=== PATIENT | female | born 1950 | race Caucasian/White ===

== ENCOUNTER 2020-12-21 15:51 | Inpatient (IN) | payer OTHER ==
[~2020-12-21] VITALS: Ht 154.9 cm; Wt 60.2 kg
[~2020-12-21 15:51] MED LIST: ARICEPT10 M1 PO; COREG3.125 MG PO; FUROSEMIDE 20 M20 MG PO; GEODON20 MG PO; IRBESARTAN150 MG PO; LEXAPRO20 MG PO; LIPITOR40 MG PO; MELATONIN3 M1 PO; NUEDEXTA 20-101 EACH PO; PEPCID20 MG PO; SINEMET 25-1001 EAC1 PO; SPIRONOLACTONE25 M1 PO
[2020-12-21 17:10] VITALS: BP 184/67
--- NOTE | 2020-12-21 18:46 | NUR ---
PATIENT 70 YEAR OLD FEMALE LIVING WITH HER DAUGHTER AT HOME. BROUGHT INTO EMERGENCY DEPT DUE TO INCREASED COMBATIVENESS AND AGGRESSION AT HOME - PATIENT HAS HISTORY OF TBI DUE TO FALL SEVERAL YEARS AGO - WHERE THIS BEHAVIOR STARTED. PATIENT NON AMBULATORY AND MANUVERS AROUND IN WHEELCHAIR AND VERY HIGH FALL RISK. DAUGHTER BUCKY WALTERS IS DPOA - PATIENT ASSESSED AND FOUND TO BE HIGHLY CONFUSED STATING WAS HERE DUE TO GRANDAUGHTER HAVING BABY IN HOSPITAL. PATIENT COMPLIANT WITH MEDICATIONS. CALLED DR. STEWARD AND ORDERS PLACED PER REVIEW WITH . PATIENT ESCORTED TO ROOM - CALM AND AGREEABLE.
[2020-12-21 20:55] VITALS: BP 164/75
[2020-12-22 06:09] LABS: CHOLESTEROL 135 mg/dL (<200); HDL CHOLESTEROL 40 mg/dL (>40); LDL CHOLESTEROL 73 mg/dL (<100); TC:HDL 3.4 Ratio (Not establshd); TRIGLYCERIDE 114 mg/dL (<150); VLDL 23 mg/dL (<40)
[2020-12-22 06:11] LABS: SERUM ASSESSMENT Clear
--- NOTE | 2020-12-22 07:10 | NUR ---
12/21/20 - Pt is Alert/[place] x 3, pleasant, denies SI/HI/AH/VH. Took meds whole without difficultly. utilizes w/c, assist x 1 with transfers.
[2020-12-22 09:23] VITALS: BP 187/71
[2020-12-22 11:32] LABS: HEMATOCRIT 39.5 % (37.0-47.0); HEMOGLOBIN 13.4 gm/dL (12.0-15.0); MCH 33.5 pg (26.0-34.0); MCHC 34.1 g/dL (28.0-37.0); MCV 98.4 fL (80.0-100.0); RBC 4.01 mil/uL (4.20-5.00); RDW 13.4 % (10.5-14.5); WBC 6.6 thou/uL (4.0-11.0)
[2020-12-22 12:37] VITALS: BP 155/68
--- NOTE | 2020-12-22 15:33 | NUR ---
Assumed pt care at 0700. pt was in her room sleeping. Pt was alert and oriented to person. Assessments completed, vss. pt denies si/hi denies pain. took meds whole, no difficulty noted. Ambulates with a w/c. pt is 1x assist. No sign of acute distress noted upon assessments. Pt was incontinent of bowel x2. pt had a watery stool. Dr Delgadillo notified. stool sample collected and sent to lab. Pt was given a shower. At this time pt is in the day room watching TV. Will continue to Monitor pt.
[2020-12-22 20:27] VITALS: BP 169/53
[2020-12-22 20:30] VITALS: BP 156/60
[2020-12-23 05:36] LABS: GLYCOHEMOGLOBIN (HGB A1C) 5.5 % (4.8-5.6)
--- NOTE | 2020-12-23 05:57 | NUR ---
12-22-20 CARE TRANSFERRED 1899. LATER PT AAOX1, VSS, RR EVEN AND NONLABORED ON RA. PT PRESENTS CONFUSED, REPORTS SHE IS ON A FREIGHTER HEADING SOUTH, SHE HAS NEVER LIVIED BELOW, PT HAS REMAINED CALM AND EXCEPTING WHEN RERIENTED TO HOSPITAL. PT DENIES SI/HI AND OBSERVED NO BEHAVIORS. PT DENIES PAIN AND NO S/S NOTED. PT WILL CONTINUE TO BE MONITOR PER [facility] PROTOCOL.
[2020-12-23 08:00] VITALS: BP 153/63
--- NOTE | 2020-12-23 15:34 | NUR ---
IRRITABLE AND RESTLESS THIS AM-ATTEMPTING TO GET UP OUT OF CHAIR MULTIPLE TIMES TRIGGERING CHAIR ALARM-STATES SHE IS NOT SUPPOSED TO BE HERE "I NEED TO GO I THINK SOMEONE IS WAITING FOR ME THEY DON'T KNOW WHERE I AM" COMPLIENT WITH TAKING AM MEDICATIONS AND ALLOWING PHYSICAL ASSESSMENT-DENIES C/O PAIN. BS HYPERACTIVE AND PT REPORTED TO HAVE LARGE LOOSE BM 12/22-AFTER EATING LUNCH AT APPROX 1400 SITTING IN WC IN DAYROOM AND VOMITED LARGE AMOUNT UNDIGESTED FOOD-ALSO INCONTINENT OF LARGE-LOOSE STOOL- SHOWER GIVEN,CLOTHING CHANGED-IMMODIUM 2MG GIVEN PO PRN, DR LOMELI CALLED AND INFORMED OF ABOVE-ZOFRAN 4MG PO PRN AT APPROX 1534-ASSISTED TO BED AND APPEARS TO BE RESTING QUIETLY AT THIS TIME.
--- NOTE | 2020-12-23 17:57 | NUR ---
SW completed psychosocial assessment and tx plan. SW team will remain available while on this unit.
[2020-12-23 20:13] VITALS: BP 151/66
[2020-12-23 20:20] VITALS: BP 151/66
--- NOTE | 2020-12-24 01:19 | NUR ---
PATIENT HAS BEEN IN ROOM ALL EVENING. SHE HAS EATEN SOFT FOODS SINCE SHE HAD DIARHEA AND EMESIS EARLIER IN THE DAY. SHE WAS ABLE TO KEEP DOWN YOGURT AND A FEW CRACKERS. PT ALSO HAD SOME [place] SODA SHE SIPPED ON. DENIES PAIN. ASSISTED PATIENT TO THE RESTROOM. SHE WAS INCONTINENT OF URINE AND WAS CLEANED AND CHANGED BRIEF. PATIENT HELPED BACK TO BED. DENIES PAIN, AND N/V. PATIENT IS A/0X1. WALKS WITH ASSIST X 1. NO SIGNS OF SI/HI/AVH. ROUTINE ROUNDS TO ASSESS SAFETY AND STATUS OF PATIENT. BED IN LOW POSITION AND BED ALARM IS ON.
[2020-12-24 08:39] VITALS: BP 155/66
--- NOTE | 2020-12-24 11:26 | NUR ---
Nutrition: Pt admitted to [facility] dx dementia with behavioral disorder. PMH: cardiac stent, TBI, HTN. Visit with pt in dayroom. No weight hx available however pt reports stable. Average intake of meals 53% past 6 meals. Pt voices no appetite changes. Recent diarrhea noted, immodium added. RD suggested daily banana also. Pt voiced no nutrition related to concerns to RD. Low risk.
--- NOTE | 2020-12-24 13:47 | NUR ---
KASIE contacted pt's dpoa Marsha. No answer. KASIE left a msg. SW team will continue to follow pt during her stay on this unit.
[2020-12-24 19:47] VITALS: BP 176/68
[2020-12-24 20:00] VITALS: BP 176/68
--- NOTE | 2020-12-24 20:35 | NUR ---
LABILE MOOD THIS SHIFT. PLEASANT AND COOPERATIVE UPON INITIAL APPROACH AT 0730 WHEN HELPED TO DRESS,AND BRIEF CHANGED-BROUGHT TO DR AND GIVEN BREAKFAST-WAS PLEASANT AND APPRECIATIVE OF ASSISTANCE-APPROX 30 MINUTES LATER WHEN THIS RN APPROACHED KISHAN IN DAYROOM WITH 0900 MEDS WAS NOTED TO HAVE ANGRY FACIAL EXPRESSION,INSISTING SHE NEEDED TO LEAVE HERE AND FELT LIKE A PRISONER,"THEY HAVE TAKEN EVERYTHING-ESPECIALLY MY FREEDOM" DID RESPOND TO SUPPORT AND REASSURANCE FROM STAFF AND TOOK AM MEDS. REPORTED BY FAUSTINA RN THAT PT BECAME AGGRESSIVE-STRUCK AT STAFF AND WAS GIVEN ATIVAN O.5MG IM DURING TIME THIS RN WAS IN TREATMENT TEAM MEETING. SINCE ADMINISTRATION OF IM HAS BEEN SOMULENT-ROUSABLE TO VERBAL STIMULI BUT QUICKLY FALLS BACK TO SLEEP. 1700 MEDS HELD D/T SEDATION-REMAINS ON HIGH FALLS RISK AND WILL CONTINUE TO MONITOR.
--- NOTE | 2020-12-25 02:56 | NUR ---
PATIENT HAS BEEN IN ROOM AND IN BED SINCE BEGINNING OF THE SHIFT. SHE WAS ASKING QUESTIONS REGARDING HOW LONG SHE BEEN HERE AND WHEN WILL SHE GET TO GO HOME. I ANSWERED HER QUESTIONS WITH WHAT INFORMATION I HAD AND LET HER KNOW THE DR WOULD BE IN TO SEE HER IN THE MORNING. SHE WAS CONTENT WITH THIS INFORMATION. SHE STATES SHE IS NOT SI/HI/AVH. DENIES PAIN. SHE SAT UP TO TAKE HER HS MEDS WHOLE WITH WATER. SHE IS IMPULSIVE AND GETS UP OUT OF BED TO WALK TO THE BATHROOM WITHOUT HER WALKER AT TIMES. THE BED ALARM IS ON AND BED IS IN LOW POSITION. SHE IS A/0X1-2. SHE HAS BEEN CALM AND COOPERATIVE TONIGHT. CONTINUING ROUTINE ROUNDS TO ASSESS SAFETY AND STATUS OF PATIENT.
[2020-12-25 09:20] VITALS: BP 184/70
--- NOTE | 2020-12-25 17:34 | NUR ---
VM received from [facility], Farhan Ortiz ([phone]). Phone communication with Ms. Ortiz who provided her email address - [email or web address] Email sent to Ms. Ortiz - welcome email and attachments.
--- NOTE | 2020-12-25 18:24 | NUR ---
Assumed patient care at 0700, sleeping in bed, vss, clear lungs, bs active, took medication whole, amb with walker, paticipated in groups, eat good, patient is incont, denies si/hi and pain, will continue to monitor patient
[2020-12-25 19:50] VITALS: BP 150/58
--- NOTE | 2020-12-26 05:12 | NUR ---
12-25-20 CARE TRANSFERRED 1899. LATER PT AAOX1, VSS, RR EVEN AND NONLABORED ON RA. PT DENIES SI/HI AND PAIN. PT PRESENTS PLEASANTLY CONFUSED, REPORTS SHE WILL BE GETTING OFF THIS BOAT TODAY. PT REORIENTED TO PLACE AND EASILY ACCEPTS. PT ATE 100% OF HS SNACK AND TOOK MEDICATION WHOLE WITH THING LIQUIDS, ZERO DIFFICULTIES. PT HAS REMAINED CALM AND COOPERATIVE, PT WILL CONTINUE TO BE MONITOR PER [facility] PROTOCOL.
[2020-12-26 08:28] VITALS: BP 168/78
--- NOTE | 2020-12-26 17:51 | NUR ---
Phone call to Farhan Yomicarlie ([phone]) regarding possible discharge and confirmation of living arrangements. Farhan stated her mother does reside with her in the home same home. The pt gets confused as she did live alone approximately 2 years ago, prior to Farhan moving in. Farhan expressed concern with discharge being that she had spoken to a nurse who stated the pt. had an incident of aggression towards staff. The informed Farhan that this will be discussed with the doctor. Farhan is looking into alternative living arrangements for the pt. but states that probably will not be feasible for about 2 months. A return phone call to Farhan was made after discussing with the doctor. Farhan was informed that due to the aggression, the doctor will hold off on discharging the pt.
--- NOTE | 2020-12-26 18:26 | NUR ---
0700 ASSUMED CARE OF PATIENT, PATIENT IN BED AT THAT TIME. PATIENT TO DAYROOM IN [facility]. MED COMPLIANT. NO C/O PAIN, LS CLEAR, BS ACTIVE. DENIES SI/HI. DENIES ANXIETY/DEPRESSION. VS 168/78, 60,18,98.4,98%
[2020-12-26 19:54] VITALS: BP 146/49
--- NOTE | 2020-12-27 05:02 | NUR ---
12-26-20 CARE TRANSFERRED 1900 OBSERVED PT SITTING IN DAY ROOM. LATER PT AAOX2, VSS, RR EVEN AND NONLABORED ON RA. PT PLEASANT, CALM AND COOPERATIVE, PT DENIES SI/HI AND PAIN. DURING MEDICATION ADMIN PT HAD NO DIFFICULTIES TAKING MEDICATION WHOLE WITH WATER. PT BED WAS ADJUSTED FOR COMFORT, LOWEST POSITION, LOCKED AND ALARM ON. PT WILL CONTINUE TO BE MONITOR PER [facility] PROTOCOL.
[2020-12-27 09:58] VITALS: BP 163/68
--- NOTE | 2020-12-27 11:56 | NUR ---
RT Progress Note- Dioredna Donovan" has been present in the milieu each day as well as each recreation therapy group. She remains irritable and upset at hospitilization which hinders her active participation at times. It is noted that giving her reorientation and speaking in a calm, soft voice helps her to calm when becoming agitated. Socorro tends to only observe group when asked to participate, however she will jump in on her own accord later in each group. QUANTITATIVE RESEARCHER will continue to encourage participation.
--- NOTE | 2020-12-27 13:33 | NUR ---
Assumed pt care 0700. pt was in her room resting. Alert and oriented to person and place. Assessments completed, vss. Pt took meds whole, no difficulty noted. Ambulates with a w/c. No sign of acute distress noted upon assessments. No c/o of pain at this time. Denies si/hi. Meds administered as ordered. Calm and cooperative with care . PT Had a bowel movement this shift. MAKES NEED KNOWN TO STAFF. At this time pt is in the day room. Will continue to monitor.
[2020-12-27 19:00] VITALS: BP 140/48
[2020-12-27 19:32] VITALS: BP 140/48
--- NOTE | 2020-12-28 00:04 | NUR ---
Assumed care on 12/27/20 @ 1930, A&Ox 1 to person. Pleasant affct noted, HRRR, Lungs CTA, ABD n x4q, Reports bm today. Reports Milton is the president, and the year is 2015, the month is February.
[2020-12-28 10:18] VITALS: BP 153/72
[2020-12-28 10:20] VITALS: BP 153/72
--- NOTE | 2020-12-28 11:02 | NUR ---
0700 ASSUMED CARE OF PATIENT, PATIENT IN BED AT THAT TIME. PATIENT CALM AND COOPERATIVE. TO DAYROOM FOR BREAKFAST. MED COMPLIANT WITH NO BEHAVIORS NOTED. PATIENT PRESENT IN GROUP THIS AM. COMMUNICATES WITH OTHER PEERS WELL. VS 153/72, 60, 18, 97.9, 96%. LS CLEAR, BS ACTIVE DENIES NEEDS AT THAT TIME.
[2020-12-28] MEDS ORDERED: COREG6.25 MG PO (14:59)
[2020-12-28 15:17] VITALS: BP 153/72
--- NOTE | 2020-12-28 16:27 | NUR ---
Phone call to DPABDIRAHMAN, Marsha Ortiz. The SW informed Ms. Ortiz that the pt. will be discharged today. Ms. Ortiz is concerned about the pt. being discharged due to no medication changes occurring and the pt. having had an aggressive incident towards a nurse. The SW explained to Ms. Ortiz that the pt. has not had any additional incidents. Ms. Ortiz scheduled to chicken picker the pt. at 1600 hours. The pt. will return home. Ms. Ortiz stated the pt. receives psychiatric services from Dr. Sánchez of [facility]. Ms. Ortiz has looked into a different placement for the pt. She requested a referral be sent to [facility]. Phone call to pt's PCP, Dr. Coelho. Appointment scheduled for Thursday. January 25 at 10:45a.m. Phone call to Dr. Sánchez ([phone]) for psychiatric appointment. Office is closed on Fridays. Fax sent to [facility] (fax: [phone]). New referral including FACE sheet, 's progress notes, nursing notes and medication. Phone message from [facility] regarding referral. A return phone call and voice message was left.
--- NOTE | 2020-12-28 17:57 | NUR ---
PATIENT AMB TO ROOM WITH WALKER WITH SLOW AND STEADY GAIT X 1 ASSIST. PATIENT CHANGED INTO PERSONAL CLOTHES AND READY FOR DISCHARGE. TRANSFERED TO PERSONAL WHEEL CHAIR AND OUT TO DAYROOM. 1700 DAUGHTER HERE TO HUMAN RESOURCES EXECUTIVE PATIENT RN AND PATIENT OUT TO OUTSIDE RANKIN, INSTRUCTIONS GIVEN TO DAUGHTER (DPOA). BELONGINGS IN HAND. PATIENT ACCOMPANIED TO VEHICLE IN WC BY STAFF.
== END 2020-12-28 16:45 | disposition home or self-care (01) | DRG 884 ==
LOC: SBH 15:51
PROVIDERS: Hospitalist; ADMIT Psychiatry & Neurology Psychiatry; ATTEND Psychiatry & Neurology Psychiatry
DX: F03.91 Unspecified dementia, unspecified severity, with behavioral disturbance (principal); N18.9 Chronic kidney disease, unspecified; F23 Brief psychotic disorder; N39.0 Urinary tract infection, site not specified; E87.6 Hypokalemia; R19.7 Diarrhea, unspecified; B96.1 Klebsiella pneumoniae [K. pneumoniae] as the cause of diseases classified elsewhere; F41.9 Anxiety disorder, unspecified; I12.9 Hypertensive chronic kidney disease with stage 1 through stage 4 chronic kidney disease, or unspecified chronic kidney disease; Z88.1 Allergy status to other antibiotic agents; Z95.5 Presence of coronary angioplasty implant and graft; Z87.820 Personal history of traumatic brain injury; Z79.899 Other long term (current) drug therapy; Z81.8 Family history of other mental and behavioral disorders
CPT/HCPCS: 10880

== ENCOUNTER 2021-05-15 16:24 | Inpatient (IN) | payer OTHER ==
[~2021-05-15] VITALS: Ht 154.9 cm; Wt 64.9 kg
[~2021-05-15 16:24] MED LIST changes: +COREG6.25 MG PO
[2021-05-16] MEDS ORDERED: CARVEDILOL3.125 MG PO ×2 (02:53)
[2021-05-16] MEDS ORDERED: HYDROXYZINE HCL25 M2 PO ×2 (02:57)
[2021-05-16] MEDS ORDERED: FLONASE 0.05%50 MCG NASAL ×2 (02:58)
[2021-05-16] MEDS ORDERED: IMODIUM A-D2 MG PO ×2 (02:59)
[2021-05-16] MEDS ORDERED: B-121000 MC2 PO ×2 (03:01)
[2021-05-16] MEDS ORDERED: TYLENOL325 M1 PO ×2 (03:01)
[2021-05-16] MEDS ORDERED: CEFUROXIME500 MG PO ×2 (10:00)
--- NOTE | 2021-05-16 17:26 | NUR ---
Transferred from [facility] s/p being aggressive with staff. Upon admission to ER found hyponatremic and admitted to medical floor. Na this AM 144. Alert and orientated to name only. Does answer some questions coherently. Consents obtained from BRITTNEE Larson. Denies SI/HI. Breath sounds clear. Reg HR auscultated. Color pink with brisk capillary refill and palpable peripheral pulses. Incontinent of large amt yellow urine. Active bowel sounds over soft, rounded abdomen. BM today per report. 20 g jelco removed. Rash under R breast, slight excoriation. Nystatin cream ordered. Became slightly aggressive before dinner yelling and attempting to slap. Geodon ordered but she calmed down. Dr. Agee states to hold injection until needed. Currently eating dinner without s/o distress.
[2021-05-16 18:42] VITALS: BP 139/62
[2021-05-16 19:30] VITALS: BP 139/62
--- NOTE | 2021-05-17 03:10 | NUR ---
[facility] WAS RESUNED AT 1900. SHE IS ALERT AND WAS IN HER ROOM SHE IS INCONTINIET OF BLADDER. SHE TOOK HER MEDS WITH PUDDING AND SHE DENIES PAINS,SI/AVH/HI. ABLE TO VERBALIZE SOME NEEDS. LUNGS ARE CLEAR. BS ACTIVE X4 QUAD, SHE IS ON FALL PROTOCOL, YELLOW SOCKS AND TOP ON. BED IS LOW, LOCKED AND ALARMED.
--- NOTE | 2021-05-17 10:25 | NUR ---
New admit to [facility] with dementia and behavior disorder. Hx TBI, parkinsons,dementia. Pt asking where is breakfast and meal service has already been completed. Does not remember eating anything. Has 2 different wts but will use bed scale wt 132 lb as initial baseline. When asked about food preferences, pt just stated no orange juice. Will follow intake and wt trends while on [facility]. Presents low nutrition risk.
[2021-05-17 11:45] VITALS: BP 180/73
--- NOTE | 2021-05-17 13:20 | NUR ---
05-17-2021--1300--[place] a patient yelling out in the hallway. As I approached I heard the patiebt yelling at her nurses. I told patient have you ever heard the old saying you catch more flies with honey than you do with vinegar. In a mocking voice she said "yes I have and I can get what I want". "Do you know what I want? I want you to leave". I told her it is not appropriate or accecptable to yell at her nurses. I then told her I was her web content & social media manager and I would be back later to talk to her. She stated she didn't want to talk to me. I said "ok" and left. I will attempt to do a psychosocial assessment with her later this date.
[2021-05-17 14:42] LABS: CHOLESTEROL 119 mg/dL (<200); HDL CHOLESTEROL 37 mg/dL (>40); LDL CHOLESTEROL 64 mg/dL (<100); TC:HDL 3.2 Ratio (Not establshd); TRIGLYCERIDE 93 mg/dL (<150); VLDL 19 mg/dL (<40)
[2021-05-17 14:43] LABS: SERUM ASSESSMENT Clear
[2021-05-17 14:51] VITALS: BP 173/73
--- NOTE | 2021-05-17 18:47 | NUR ---
Assumed care from overnight shift this am. Client was in room resting when assessed. Client presented hostile and fussy, and was oriented to person only at this time. Client stated [place] the [place] and stated that she did not care what year or time it was, stating it was 1990. Client voiced that she did not want to leave bed, but was prompted to get up with physical therapy and nursing assistance. Client was changed at this time, and bedding was changed as well due to incontinence. Barrier cream applied to slight redness on bottom. Client promptly urinated on her pants after this change and was changed again. Client refused to participate in ADLs with physical therapist, and when asked to help ambulate to chair, refused, and urinated in brief for third time. Client was once again changed and barrier cream applied. Client started screaming and yelling at staff and was redirected to use more appropriate wording and coping skills. Client denied any depression or anxiety, but has been noted to state "I'm going to ; I want to go home; I have unfinished business" and has been monitored in the activity area during this shift for psych concerns. Client denied any audio or visual hallucinations at this time. Client also denied any suicidal or homicidal intent, but once again has been stating that she feels like she is going to and has been crying hysterically. PRN zyprexa was given to client as she continued to scream and cry and tried to hit staff, scratched staff, and kept spitting at staff. Client was reoriented to environment and put back in gerichair. Client last BM was today, with client having brief changed another two times due to this. Dr. Agee and this nurse also changed her brief again after another episode of incontinence and once again was reoriented to environment as she continued to scream and yell. Client lung sounds were clear and diminished. Client watched tv for some time, and then around dinner time started to scream and yell again. Client was given prn 1 mg ativan for this. Client is currently calmer in chair. No further concerns at this time.
[2021-05-17 19:14] VITALS: BP 162/56
[2021-05-17 22:05] VITALS: BP 126/51
[2021-05-18 00:06] LABS: GLYCOHEMOGLOBIN (HGB A1C) 5.7 % (4.8-5.6)
--- NOTE | 2021-05-18 04:27 | NUR ---
Dior was noted in the dayroom at the start of the shift sitting calmly in a geir-chair. Pt's BP was initially 162/56 with a HR of 94. This RN went to go retake pt's BP at 2004 and in the middle of obtaining her BP pt started to projectile vomit which last about 2 minutes. Pt was covered in emesis and was brought to the shower room where she received a full shower. There was a large amount of bright red fluid within the emesis and due to the pt being a poor historian and nothing noted from dinner that would have been red, WELDING MACHINE TENDER Racquel was paged and notified of the incident, as well as the red tint. An order was received for an occult blood and a sample of the emesis was sent to lab; results pending. Once pt was showered, she was brought to her room to laydown for the night. She stated that she started to feel sick to her stomach this afternoon but felt better after her shower. Zofran PRN was given with her scheduled HS medications at 2041 and her BP was rechecked at 2039 and was 126/51. Pt was alert and oriented to self only and loosly to time as she knew it was May but stated it was 1920. She endorsed feelings of depression and anxiety, but denied SI/HI/HERNANDEZ. She has remained in bed the rest of the shift and is sleeping at this time. She denied pain and other physical symptoms this shift. Pt's routine COVID test will be done this morning; will continue to monitor.
--- NOTE | 2021-05-18 08:42 | NUR ---
IN BED WITH EYES CLOSED DEEP SNORING RESPIRATIONS -AWAKENS TO VERBAL PROMPTS -IRRITABLE AND MINIMALLY COOPERATIVE WITH AM ASSESSMENT AND MED PASS-REPORTS CONTINUED NAUSEA AND REFUSES ALL AM MEDICATIONS. BP ON MACHINE 184/63-RECHECKED MANUALLY BY THIS NURSE IN ROOM HOWEVER PT WAS RESISITING AND ATTEMPTING TO PULL ARM AWAY 148/78-VERBALLY ABUSIVE "JUST LEAVE ME ALONE YOU BITCH I WANT TO SLEEP-I'M SICK" REFUSED COMPLETE PHYICAL ASSESSMENT INCLUDING LUNG AND BOWEL SOUNDS HOWEVER WHEN IN ROOM NO COUGH OR CONGESTION OBSERVED-SKIN W/D. MOVING ALL EXTREMETIES -NO NEURO DEFECITS NOTED UPON VISUAL INSPECTION HOWEVER NOTED REFUSED COMPLETE NEURO EXAM. REFUSED BREAKFAST-DID TAKE SIPS OF WATER WITH MUCH ENCOURQAGEMNT. BED ALARM ACTIVATED PER PT CARE FACILITY HAS LONG HX OF THROWING SELF TO THE FLOOR WHEN UPSET OR AGITATED-NO FURTHER EPISODES OF PROJECTILE VOMITING
[2021-05-18 09:49] VITALS: BP 184/63
[2021-05-18 09:50] VITALS: BP 199/58
--- NOTE | 2021-05-18 11:49 | NUR ---
11:30AM - In person with patient. Patient was in bed. She reported to not having breakfast. The SW informed the patient that it was almost time for lunch and let the patient know what was being served. The patient was pleasant while speaking with the SW. The SW asked the patient if she knew why she was here. The patient responded that she did not know why nor how long. The SW informed the patient that the previous records would be reviewed in order to complete the assessment. The patient reported to vaguely remembering the SW from the patient's last hospitalization. The patient acknowledged yelling at staff. She further expressed frustration in getting "shots in the arm" when she does not agree with staff. The SW stated the patient could ask for the SW to come if she feels she is not being listened to so that she won't have to yell and won't get those shots.
--- NOTE | 2021-05-18 12:01 | NUR ---
12:01PM - Attempted phone call to daughter, Marsha Ortiz, ([phone]) but the phone number was currently not working.
[2021-05-18 12:37] LABS: CALCIUM 8.9 mg/dL (8.5-10.1)
--- NOTE | 2021-05-18 14:00 | NUR ---
YELLING LOUDLY IN DAYROOM AFTER LUNCH DEMANDING TO PUT BACK TO BED-ACCUSING STAFF OF NEGLECTING HER WE HAD TO ASSIST WITH SEVERLY COMBATIVE PT FOR 10-15 MINUTES AND SHE HAD TO WAIT FOR 5 MINUTES TO USE RESTROOM- NURSE WAS ASSISTING HER TO TOILET IS SHOUTING"YOU ARE CRAZY-YOU ARE CRAZY"REQUESTING TO GO TO BED AFTER BEING TOILET SHE FELT THIS WOULD CALM HER BECAUSE IT WAS SO NOSISY FROM YELLING AND SCREAMING OF COMBATIVE PT-QUIET FOR 4-5 MINUTES WHEN PLACED IN BED THEN BEGANS TO YELL HELP ME HELP ME-WHEN STAFF ARRIVES TO ROOM IS LOUDLY TEARFUL STATING "I DON'T KNOW WHERE I BELONG"STAFF SAT 1;1 IN ROOM WITH HER FOR 10-15 MINUTES HOWEVER BEGAN TO YELL AGAIN SOON NURSE LEFT ROOM
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
[2021-05-18 19:18] VITALS: BP 134/108
[2021-05-18 19:45] VITALS: BP 134/108
[2021-05-18 21:50] LABS: HEMOGLOBIN 11.8 gm/dL (12.0-15.0)
--- NOTE | 2021-05-18 23:34 | NUR ---
05/18/21 1900, A&OX1, REPORTS THAT THE PRESIDENT IS SARIAH. REPORTS THAT SHE DOES NOT KNOW WHERE SHE LIVES. WHEN ASKED IF IT IS [facility], SHE AGAIN STATES THAT SHE DOES NOT KNOW WHERE SHE LIVES. NOTED TO BE QUITE WEAK AND WHEN AMBULATING WITH WALKER AND X1 ASSIST, SHE FUSSES ABOUT USING THE WALKER, HOWEVER WHEN SHE IS NEAR THE CHAIR SHE PLANS ON SITTING IN AND TAKES ONE STEP, SHE WOULD HAVE FALLEN IF STAFF WERE NOT RIGHT WITH HER TO HANDS ON ASSIST. WHEN AMBULATING BACK TO HER ROOM WITH X1 ASSIST BECOMES WEAK AND NEARLY FALLS, AND WOULD HAVE FALLEN IF STAFF WERE NOT RIGHT THERE TO SUPPORT THE PATIENT. VERBALLY ABUSIVE TO STAFF, AND ALTERNATES BETWEEN TEARFUL AND IRRITATED AND VERBALLY ABUSIVE. DENIES AH/VH, DENIES SI/HI. ACKNOWLEDGES ANXIETY AND DEPRESSION. TAKES MEDS WHOLE, BUT FUSSES AND HANDLES MEDS DROPPING SEVERAL MEDS IN HER LAP. WHEN GIVEN A SECOND TIME, DID TAKE THE MEDS. COMPLAINS OF NAUSEA, GABRIELLE PROVIDED @ 2230. BED IN LOW POSITION, BED ALARM SET, WILL CONTINUE TO MONITOR FOR SAFETY AND COMFORT.
[2021-05-19 10:22] VITALS: BP 109/58
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
[2021-05-19 19:50] VITALS: BP 114/40
[2021-05-19 20:06] VITALS: BP 114/40
--- NOTE | 2021-05-20 00:29 | NUR ---
05/19/21 1900 at the start of the shift in the dining room seated in a verena chair, toileted and retired to bed. Cooperative with assessment and accepted mediction crushed in pudding (with uncrushable meds given whole). Noted to be calm at this time. HRRR, Lungs CTA but diminished bilat, Reports BM on Sat 05/18, confirmed by staff. No vomiting noted this shift, denies nausea. After medication pass, closed eyes and slept. Bed in low position, bed alarm set, will continue to monitor for safety and comfort as per high fall risk unit policy.
[2021-05-20 09:07] VITALS: BP 127/42
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
[2021-05-20 20:12] VITALS: BP 137/43
--- NOTE | 2021-05-20 22:59 | NUR ---
PATIENT WAS IN HER BED IN ROOM AT START OF HS SHIFT. SHE WAS YELLING AT ONE OF THE BHT'S. SHE IS DEMANDING AND IRRITATED. WHEN THIS RN ASKED WHY SHE WAS UPSET SHE STATED THAT BECAUSE SHE HAS BEEN "A BAD GIRL" AND GOT 2 OR 3 SHOTS TODAY. SHE IS AAOX2. STATES THAT SHE COULD NOT TAKE HER HS MEDICATIONS BECAUSE SHE NEEDED TO TALK TO THE YARD MASTER. PATIENT IS INCONTINENT OF URINE AND HAS SOME REDNESS TO HER BOTTOM BUT NO APPARENT SKIN OPENING AT THIS TIME. NYSTATIN POWDER APPLIED. NOTFIED DR MONTEMAYOR REGARDING REFUSAL OF MEDICATIONS. RECEIVED ORDER FOR 7.5MG OLANZAPINE IM X1 DOSE. PATIENT WAS COOPERATIVE WITH THE INJECTION. HER VSS. WILL CONTINUE TO MONITOR FOR CHANGES IN STATUS. ALL SAFETY PRECAUTIONS ARE IN PLACE.
--- NOTE | 2021-05-21 09:50 | NUR ---
A note all - patient's daughter's correct phone # is [phone]. Have contacted reistration to correct - spoke to Irma @[phone]
[2021-05-21 10:01] VITALS: BP 184/40
[2021-05-21 11:46] VITALS: BP 140/82
--- NOTE | 2021-05-21 14:56 | NUR ---
Dior was alert and oriented to person, place, and time as she knew it was May and 2020, but was disoriented to situation. She started the shift off drowsy but easily arousable. She was able to stay awake long enough to answer assessment questions and take her medications, but stated "I'm tired, I don't want to talk right now, I want to go back to sleep". Pt slept until about 1200 and was brought to the dayroom for lunch. At that time she stated she had to use the bathroom and was provided the bedside commode where she also had a medium sized, soft, BM. She appeared less drowsy as the day continued and remained awake in the dayroom. She was medication and meal compliant this shift, taking pills whole, and feeding self without difficulty. She denied SI/HI/HERNANDEZ and remained safe while on the unit this shift. She denied pain, SOB, cough, GI upset, and other physical symptoms this shift. Pt remains a high fall risk and is currently in a verena-chair in the dayroom. Pt's initial BP this shift was 184/40 with a HR of 49. BP was retaken manually and was 140/82 but pt was sleeping and HR remained 49. Will continue to monitor.
[2021-05-21 20:04] VITALS: BP 122/59
--- NOTE | 2021-05-22 02:40 | NUR ---
PATIENT BEGAN SHIFT BEING ARGUMENTATIVE WITH INSPECTOR FINAL ASSEMBLY MECHANICAL. INSPECTOR FINAL ASSEMBLY MECHANICAL TOOK PATIENT TO HER ROOM TO USE BSC. THIS NURSE JOINED TO HELP AND PATIENT BEGAN CRYING, STATING SHE DIDN'T WANT TO BE HERE ANYMORE. SHE WANTS TO GO HOME. PATIENT CALMED QUICKLY WITH SOME CONSOLING WORDS. PATIENT ASSISTED TO BED. SHE TOOK HER MEDS WHOLE WITH WATER. SHE HAS BEEN CALM AND COOPERATIVE SINCE THEN. SHE DENIES PAIN, SI/HI/AVH. PT RESTING IN BED AND BED ALARM IS ON AND BED IN LOW POSITION. ROUTINE ROUNDS TO ASSESS SAFETY AND STATUS OF PATIENT.
[2021-05-22 12:22] VITALS: BP 112/68
[2021-05-22 13:39] VITALS: BP 110/39
[2021-05-22 19:24] VITALS: BP 142/55
[2021-05-22 19:40] VITALS: BP 142/55
--- NOTE | 2021-05-23 02:19 | NUR ---
PATIENT CARE WAS RESUMED AT 1900. SHE IS ALERT AND ORIENTED. MODERATE ASSIT WITH CARE. ABLE TO VERBALIZE HER NEEDS AND CONCERNS. SHE DENIES PAINS/SI/AVH/HI. SHE TOOK HER MEDS WHOLE. CREAMES APPLIED TO AFFECTED AREAS PER ORDERS. SHE IS CONTINENT OF BOWEL AND BLADDER.BED IS LOW, LOCKED AND ALARMED. [id number] CHECKS ARE ONGOING.
[2021-05-23 07:01] VITALS: BP 120/63
[2021-05-23 09:37] VITALS: BP 120/63
--- NOTE | 2021-05-23 10:37 | NUR ---
RT Progress Note- Present in the milieu each day and most recreation therapy groups, Dior has participated moderately at this time. She does not like to engage in exercises d/t reported pain. Dior is particularly responsive to 1;1 discussion where she is able to identify that her aggressive and physical behaviors are inappropriate. She endorses depression and general unhappiness throughout her life. SUPERVISOR GLYCERIN will continue to encourage patient participation and discovery of coping skills and enjoyable leisure.
--- NOTE | 2021-05-23 13:45 | NUR ---
DID VOMIT APPROX 200-300CC AT BREAKFAST TABLE WHILE EATING BREAKFAST.NO BLOOD NOTED IN VOMIT NOTED TO BE BROWNISH OARANGE COLOR-ASSISTED TO ROOM BY TWO STAFF AND WASHED AND CLOTHING CHANGED-REPORTS MILD NAUSEA AND REQUESTING TO LAY DOWN IN BED. STATES SAUSAGE AT BREAKFAST MADE HER NAUSEATED. ZOFRAN 4MG GIVEN PO PRN AT 0745. AM MEDICATIONS HELD UNTIL APPROX 0930 WHEN PT WAS ABLE TO EAT SOME CRACKERS AND DRINK WATER AND SPRITE WITHOUT REPORTED N/V. RELUCTANT TO TAKE AM MEDICATIONS STATING "THAT IS TOO MANY" UP AT SIDE OF BED YELLING AT 1145-STATING WANTS TO COME TO DAYROOM BECAUSE SHE IS HUNGRY-DID VOMIT SMALL AMOUNT BROWNISH LIQUID AFTER LUMCH. ZOFRAN 4MG POPRN AT 1415.
[2021-05-23 16:47] LABS: CALCIUM 8.9 mg/dL (8.5-10.1); CREATININE 0.8 mg/dL (0.6-1.0); POTASSIUM 4.7 mmol/L (3.5-5.1)
[2021-05-23 19:00] VITALS: BP 159/91
[2021-05-23 19:35] VITALS: BP 159/91
--- NOTE | 2021-05-24 03:27 | NUR ---
PATIENT CARE WAS RESUMED AT 1900. SHE IS ALERT AND ORIENTED AND ABLE TO VERBALIZE HER CONCERNS. SHE TOOK HER MEDS WHOLE AND DENIES ANY PAINS, AVH/HI. LUNGS ARE CLEAR BS ACTIVE X4 QUADS. SHE IS A MAX ASSIST WITH CARE AND TRANSFER. ON FALLL PRECAUTION, YELLOW TOP AND SOCKS ARE ON. [id number] CHECKS ARE ON AND ACTIVE. SHE CONTINUED ON ABT THERAPY AND NO ADVERSE EFFECT NOTED . CONTINUE CARE
--- NOTE | 2021-05-24 09:23 | NUR ---
Followup: remains on SBH. Had been tolerating meals except yesterday 05/23 has emesis after breakfast and lunch. No further emesis noted. No new wt. Remains low nutrition risk
[2021-05-24 11:23] VITALS: BP 127/51
--- NOTE | 2021-05-24 11:57 | NUR ---
05-24-2021--1266--Attended team meeting for patient. Patient very teary. BRITTNEE Larson. Could DC Thursday or Thursday. Will call [facility] with update and fax updates to them.
--- NOTE | 2021-05-24 13:05 | NUR ---
RESUMMED CARE FROM OVERNIGHT SHIFT THIS AM, PATIENT IN DAY ROOM SITTING QUIET. PATIENT ALERT ORIENTED TIMES 3 PATIENT DENIES SI/HI/AH/VH AT PRESENT. PATIENT ATE BREAKFAST TOOK MEDICATION WITHOUT INCIDENCE. PATIENTS ABDOMEN SOFT BOWEL SOUNDS PRESENT. PATIENTS LUNGS CLEAR PATIENT PARTICIPATING IN GROUPS TODAY. PATIENT DID HAVE 2 CRYING EPISODES SHE STATES THAT SHE DOES NOT KNOW HOW SHE GOT INTO THIS STATE. PATIENT WANTS TO GO HOME PATIENTS DAUGHTER CALLED FOR UPDATE. PATIENT HAS NOT DISPLAYED ANY BEHAVIORS THIS SHIFT; WILL CONTINUE TO MONITOR PATIENT FOR SAFETY AND BEHAVIORS.
[2021-05-24 19:22] VITALS: BP 117/39
--- NOTE | 2021-05-25 05:17 | NUR ---
Assumed care of pt at 1900. Pt calm et cooperative most of shift with a few episodes of verbal outbursts of screaming and cursing but was easily calmed. Took medications whole without difficulty. Ambulates with assistance of verena-chair but stood and transferred easily this shift. VSWNL. Health assessment with no abnormalities noted at present time. Pt denies SI/HI at present time. Socialized with peers et staff in dayroom at beginning of shift et during veterinary receptionist hours. Pt requested et was given Zofran 4mg for nausea @ 2239. Currently resting in verena-chair in dayroom with eyes open. Will continue to monitor per unit protocol.
[2021-05-25 09:20] VITALS: BP 148/56
[2021-05-25 16:51] VITALS: BP 120/63
--- NOTE | 2021-05-25 19:27 | NUR ---
Patient care resummed; patient located in dayroom in Ashlee-Chair resting comfortably; Patient has been calm, cooperative and pleasnt throughout day, with minor epiosodes of outburst crying/yelling; A&O*1 (Self Only); Lung sounds clear bilaterally, unlabored; Abdomen soft, nondistended with bowel sounds present*4; Brusing to upper and lower extremities, healing lacerations to Left eyebrow, and Left hand; Patient denies SI/HI/AVH, Pain, Anxiety, and Depression; although states "I'm just sad." VSS to baseline on RoomAir; @1100 patient was noted to be on the floor in the Dayroom by staff, Patient stated to VENEER SPLICER that she "I deliberitly slide myself onto the floor." VENEER SPLICER assesed patient for injuries, Patient states she had no pain, or discomfort and "just wanted to sit on the floor." No S/O distress; V/S are as follows -- BP: 147/60 HR: 69 R: 18 O2: 99% MAP: 81 TEMP: 97.9 BIOMEDICAL ENGINEERING INTERNSHIP Killian was on unit during incident, patient was assessed by BIOMEDICAL ENGINEERING INTERNS[employer]IP and was assissted back into her chair; Cameras were reviewed by VENEER SPLICER and BI[employer] ENGINEER[employer]NS[employer] [place] and patient visualized sliding self down under table; Fall precautions in place, Will continue to monitior for safety and behaviors.
[2021-05-25 19:59] VITALS: BP 124/53
--- NOTE | 2021-05-26 05:03 | NUR ---
Assumed care of pt at 1900. Pt calm et cooperative this shift. Took medications whole without difficulty. Ambulates with assistance of verena-chair this shift. Socialized with peers et staff in dayroom at beginning of shift. Pt denies SI/HI at present time. VSWNL. Health assessment with no abnormalities at present time. Currently resting in bed with eyes closed. Will continue to monitor per unit protocol.
[2021-05-26 09:25] VITALS: BP 130/44
--- NOTE | 2021-05-26 18:25 | NUR ---
Patient care resummed, patient resting in bed comfortably; patient has been calm, cooperative, and pleasent throughout the shift; A&O*1 (Self only); Lung sounds clear bilaterally, unlabored; Abdomen soft, minor distention noted; MOM 10mL was administered with Fleet Enema on standby if bowel movement is not acomplished; VSS on RoomAir; Denies SI/HI/AVH, pain, anxiety, depression; Patient did complain of discomfort when attempting to pass bowel movement; Medication/Meal compliant; GAS SCRUBBER OPERATOR gave patient a shower, washed hair and provided nail care. Fall precautions in place, will continue to monitior patient for safety and behaviors;
[2021-05-26 19:35] VITALS: BP 124/58
[2021-05-26 19:54] VITALS: BP 116/58
[2021-05-26 19:59] VITALS: BP 124/58
--- NOTE | 2021-05-26 23:56 | NUR ---
05/26/21 @ 1900, seated in verena chair A&Ox1 confusion noted. Initially refused meds, later when offered a second time, took meds whole with water. HRRR, Lungs CTA but diminished bilat, ABD n x4Q. VSS. Denies pain initially but once in bed asked for stomach medicine and pain meds. Zofran 4mg and Tylenol 650 provided. Bed in low position, bed alarm set, will continue to monitor for safety and comfort as per unit protocol.
--- NOTE | 2021-05-27 12:05 | NUR ---
05-27-2021--Call attempted to patient's daughter. Not in message left to call doctor on his cell phone. 05-27-2021--1205-- Call to [facility]. Left message for Diamond wright to call me back re: GUIDO on Thursday.
[2021-05-27 12:43] VITALS: BP 124/58
[2021-05-27 13:27] VITALS: BP 133/46
--- NOTE | 2021-05-27 18:04 | NUR ---
Dior was alert and oriented x4 this shift. This morning while talking with the patient she became very tearful and was disorganized in her thought process. She was explaining how she wanted to go home "But I don't have a home" and was talking about her family, but due to pt being very upset it was difficult to understand her thought process. Pt was given emotional support and responded appropriately. She spent the morning in the dayroom and participated in groups. She had c/o of constipation and was impacted. This RN attempted to depact pt but due to the amount impacted order received for a fleet enema which was successful. Order also received for senna/docusate BID; pt received her first dose at lunch. Around noon lab called and pt's COVID test from this AM came back as positive. Pt was transferred to room 517A to a private room and was placed on droplet/contact precautions. She was provided a petty as an alternative call light and was educated on its use and to please not get up without staff; pt voiced understanding. Pt has been compliant with the education provided. She initially was asymptomatic but at dinner time pt was noted yelling from her room when the TRAVELING ENGINEER transferred her to the chair to eat dinner. Pt told this RN she was yelling pt she was "hallucinating". She expressed that she was "seeing bugs" and she denied a hx of HERNANDEZ. She also expressed feeling "sick to my stomach" and zofran PRN was given with effectiveness, therefore pt ate only 40% of dinner. Pt was retested for covid this afternoon, results are currently pending. Will continue to monitor.
[2021-05-27 19:30] VITALS: BP 124/65
[2021-05-27 20:18] VITALS: BP 124/65
--- NOTE | 2021-05-27 22:32 | NUR ---
ASSUMED CARE ON 05/27/21 @ 1900, IN BED CONTACT AND DROPLET PRECAUTIONS IN PLACE D/T POSITIVE COVID19 PCR. A&OX4, INCONTINENT OF URINE X2. WEAK AND UNABLE TO STAND FOR MORE THAN A FEW SECONDS. COMPLIANT WITH MEDICATION, TAKING MEDS WHOLE WITH WATER. HRRR, LUNG SOUNDS CTA BILAT, ABD N X 4Q. RETURNED TO BED AND LYING QUIETLY WITH EYES CLOSED, RESPIRATIONS EVEN AND UNLABORED. WILL CONTINUE TO MONITOR Q 12 MINUTES FOR COMFORT AND SAFETY.
[2021-05-28 07:45] VITALS: BP 124/61
[2021-05-28] MEDS ORDERED: DEPAKOTE 250MG250 M1 PO ×2 (09:08)
[2021-05-28] MEDS ORDERED: CHLORPROMAZINE50 M2 PO ×2 (09:09)
[2021-05-28] MEDS ORDERED: STIMULANT LAXA1 EACH PO ×2 (09:10)
[2021-05-28] MEDS ORDERED: NYAMYC15 GM TOP ×2 (09:11)
--- NOTE | 2021-05-28 11:23 | NUR ---
Alert and orientated X1 this AM. Stated "I don't know." and then laughed to other orientation questions. Denies SI/HI but has some confused speech. Unable to complete Silt screening d/t confusion. Able to stand and take a few steps with assistance. Breath sounds clear. Reg HR auscultated. Color pink with brisk capillary refill and palpable peripheral pulses. Skin warm and dry. Brief dry. Active bowel sounds over soft, rounded abdomen. Excoriated red rash between buttocks, cleaned and nystatin cream applied. Report called to [place]. Placed in WC and escorted to [place] by Janell MARKETING SYSTEMS ANALYST. No s/o distress.
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
== END 2021-05-28 09:30 | DRG 56 ==
LOC: SBH
PROVIDERS: Hospitalist; Nurse Practitioner Family; Specialist; ADMIT Psychiatry & Neurology Psychiatry; ATTEND Psychiatry & Neurology Psychiatry
DX: G30.9 Alzheimer's disease, unspecified (principal); F02.81 Dementia in other diseases classified elsewhere, unspecified severity, with behavioral disturbance; U07.1 COVID-19; I11.0 Hypertensive heart disease with heart failure; E87.1 Hypo-osmolality and hyponatremia; N39.0 Urinary tract infection, site not specified; F41.9 Anxiety disorder, unspecified; F32.A Depression, unspecified; E11.9 Type 2 diabetes mellitus without complications; J43.9 Emphysema, unspecified; M81.0 Age-related osteoporosis without current pathological fracture; G89.29 Other chronic pain; E78.5 Hyperlipidemia, unspecified; G20 Parkinson's disease; I25.10 Atherosclerotic heart disease of native coronary artery without angina pectoris; I50.9 Heart failure, unspecified; Z86.16 Personal history of COVID-19; Z95.5 Presence of coronary angioplasty implant and graft; Z87.820 Personal history of traumatic brain injury; I25.2 Old myocardial infarction; Z79.899 Other long term (current) drug therapy; Z88.1 Allergy status to other antibiotic agents
CPT/HCPCS: 10045; 10880

== ENCOUNTER 2021-05-15 17:28 | Observation (INO) | payer OTHER ==
[~2021-05-15] VITALS: Ht 154.9 cm; Wt 49.0 kg
[2021-05-15 17:39] VITALS: BP 111/44
[2021-05-15 18:37] LABS: ABSOLUTE NEUTROPHILS 3.8 thou/uL (1.4-8.2); BASOPHILS 0.3 % (0.0-2.0); HEMATOCRIT 35.3 % (37.0-47.0); HEMOGLOBIN 11.6 gm/dL (12.0-15.0); MCH 32.7 pg (26.0-34.0); MONOCYTES 12.6 % (1.0-8.0); PLATELET COUNT 507 thou/uL (150-400); POLYS 51.1 % (36.0-66.0); RBC 3.56 mil/uL (4.20-5.00); RDW 13.1 % (10.5-14.5); WBC 7.5 thou/uL (4.0-11.0)
[2021-05-15 18:42] LABS: URINE BILIRUBIN NEGATIVE (Negative); URINE BLOOD NEGATIVE (Negative); URINE CLARITY CLEAR; URINE COLOR YELLOW; URINE GLUCOSE-RANDOM* NEGATIVE (Negative); URINE KETONES NEGATIVE (Negative); URINE NITRITE-REFLEX NEGATIVE (Negative); URINE PROTEIN (DIPSTICK) NEGATIVE (Negative); URINE UROBILINOGEN 0.2 E.U./dl (0.2-1.0)
[2021-05-15 18:50] LABS: ALBUMIN 3.2 g/dL (3.4-5.0); ANION GAP < 0 mmol/L (7-16); BUN 15 mg/dL (7-18); CALCIUM 8.5 mg/dL (8.5-10.1); CHLORIDE 96 mmol/L (98-107); CO2 30 mmol/L (21-32); CREATININE 0.9 mg/dL (0.6-1.0); GLUCOSE 104 mg/dL (74-106); POTASSIUM 3.7 mmol/L (3.5-5.1); SGOT 12 U/L (15-37); SGPT 10 U/L (14-59); TOTAL BILIRUBIN 0.3 mg/dL (0.2-1.0); TOTAL PROTEIN 6.4 g/dL (6.4-8.2)
[2021-05-15 18:50] LABS: AMP/METHAMP Negative (Negative); BARBITURATES Negative (Negative); BENZODIAZEPINES Negative (Negative); COCAINE Negative (Negative); METHADONE Negative (Negative); OPIATES Negative (Negative); PCP Negative (Negative)
[2021-05-15 18:58] LABS: SODIUM 115 mmol/L (136-145)
[2021-05-15 19:10] LABS: URINE LEUKOCYTES-REFLEX 1+ (Negative)
[2021-05-15 19:17] LABS: CASTS None Seen /LPF (None Seen); SQUAMOUS 4-10 Moderate /LPF (0-3)
[2021-05-15 19:18] LABS: URINE WBC-REFLEX 6-15 Few /HPF (0-5)
[2021-05-15 19:19] LABS: BACTERIA-REFLEX 1-9 Few /HPF (None Seen); CRYSTALS None Seen /LPF (None Seen); URINE RBC 1-2 Rare /HPF (NONE SEEN)
[2021-05-15 21:12] VITALS: BP 142/40
[2021-05-15 22:26] LABS: CALCIUM 8.5 mg/dL (8.5-10.1); CREATININE 0.9 mg/dL (0.6-1.0); POTASSIUM 3.7 mmol/L (3.5-5.1)
[2021-05-15 22:32] VITALS: BP 139/42
[2021-05-15 22:57] VITALS: BP 159/56
[2021-05-16] MEDS ORDERED: CARVEDILOL3.125 MG PO ×2 (02:53)
[2021-05-16] MEDS ORDERED: HYDROXYZINE HCL25 M2 PO ×2 (02:57)
[2021-05-16] MEDS ORDERED: FLONASE 0.05%50 MCG NASAL ×2 (02:58)
[2021-05-16] MEDS ORDERED: IMODIUM A-D2 MG PO ×2 (02:59)
[2021-05-16] MEDS ORDERED: TYLENOL325 M1 PO ×2 (03:01)
[2021-05-16] MEDS ORDERED: B-121000 MC2 PO ×2 (03:01)
[2021-05-16 03:33] LABS: HEMATOCRIT 33.7 % (37.0-47.0); HEMOGLOBIN 11.2 gm/dL (12.0-15.0); MCH 33.1 pg (26.0-34.0); MCHC 33.4 g/dL (28.0-37.0); MCV 99.3 fL (80.0-100.0); RBC 3.39 mil/uL (4.20-5.00); WBC 9.7 thou/uL (4.0-11.0)
[2021-05-16 04:14] LABS: CREATININE 0.8 mg/dL (0.6-1.0)
[2021-05-16 04:15] LABS: POTASSIUM 4.8 mmol/L (3.5-5.1)
--- NOTE | 2021-05-16 04:18 | NUR ---
patient aox1/2 confused and forgetful at times. patient was not able to answer assessment questions appropriately. patient ambulates to the bathroom with unsteady gaits. patient had high anxiety yelling and cursing staff. patient removed heart monitor and was about to pull out her iv.called nuclear process engineer new order of zyprexa at around 0123, zyprexa was not effective. patient continued to yell, curse and hit staff during care called nuclear process engineer new order of larry juarez given per order at around 0330.patient in bed calm. patient agreed for this nurse to place heart monitor. patient talking to unseen others at this time.
[2021-05-16 04:53] VITALS: BP 120/64
[2021-05-16 07:29] VITALS: BP 168/74
[2021-05-16] MEDS ORDERED: CEFUROXIME500 MG PO ×2 (10:00)
[2021-05-16 12:33] VITALS: BP 129/48
[2021-05-16 13:22] VITALS: BP 151/55
--- NOTE | 2021-05-16 13:23 | NUR ---
PATIENT ALERT TO SELF. AGITATED. FALL PROCUTION ON. NOTED PATIENT SIT ON FLOOR FROM CHAIR AFTER CHAIR ALARM OFF. FAMILY, DR CONTE AND HOUSE MEAGHAN NOTIFIED. XR PELIS IS NORMAL. DC PATIENT TO 523 NOW.
== END 2021-05-16 13:31 ==
LOC: ER 17:28 → EROBS 20:41 → 4W 20:41
PROVIDERS: Nurse Practitioner Family; Physician Assistant; ADMIT Internal Medicine; ATTEND Internal Medicine
DX: E87.1 Hypo-osmolality and hyponatremia (principal); N39.0 Urinary tract infection, site not specified; F03.91 Unspecified dementia, unspecified severity, with behavioral disturbance; G31.83 Neurocognitive disorder with Lewy bodies; F32.A Depression, unspecified; I50.9 Heart failure, unspecified
CPT/HCPCS: 10045